=== PATIENT | female | born 1935 | race Caucasian/White ===

== ENCOUNTER → 2024-03-24 10:28 | Outpatient (REF) | payer OTHER, SELFPAY | LOC: HWRAD 10:28 | PROVIDERS: ATTENDING PHYSICIAN Family Medicine | DX: R63.4 Abnormal weight loss (principal); R19.7 Diarrhea, unspecified | CPT/HCPCS: 71250; 74176 ==

== ENCOUNTER 2024-12-13 14:31 | Emergency (ER) | payer OTHER, SELFPAY ==
[2024-12-13 14:37] VITALS: BP 175/65
[2024-12-13 15:22] LABS: Hematocrit 42.1 % (37.0-47.0); Hemoglobin 13.8 g/dL (12.0-16.0); Mean Corp Hgb Conc. 32.8 g/dL (33.0-37.0); Mean Corpuscular Volume 98.6 fL (81.0-99.0); Nucleated Red Blood Cells % 0 %; Platelet Count 225 10^3/uL (130-400); Red Cell Dist. Width 14.6 % (11.5-14.5)
[2024-12-13 15:23] LABS: Urine Character Slightly Cloudy (Clear)
[2024-12-13 15:44] LABS: ALT (SGPT) 24 U/L (0-35); AST (SGOT) 33 U/L (14-36); Albumin 4.6 g/dl (3.5-5.0); Alkaline Phosphatase 74 U/L (38-126); Blood Urea Nitrogen 26 mg/dl (7-17); Calcium 9.8 mg/dl (8.4-10.2); Carbon Dioxide 31 mmol/L (22-30); Chloride 103 mmol/L (98-107); Glucose 102 mg/dl (70-99); Potassium 3.7 mmol/L (3.5-5.1); Sodium 141 mmol/L (135-145); Total Protein 7.5 g/dl (6.3-8.2); Urine Red Blood Cell None Seen /HPF (0-2); Urine Squamous Cell 0 /LPF (Few); Urine White Cell None Seen /HPF (0-5); eGFR > 60.00
[2024-12-13 17:14] VITALS: BP 142/82
--- NOTE | 2024-12-13 17:43 | ED.GENMED ---
History of Present Illness
General
Chief Complaint: Fall
Source: patient
Exam Limitations: none
Time Seen by Provider: 12/13/24 17:31
Nursing documentation reviewed up to this point in time: agreed with
History of Present Illness
History of Present Illness:
89-year-old female presents to the ER for evaluation of fall. Patient states around 1 PM she was standing in her kitchen and woke up on the ground. She is not sure why she fell. She does recall having lunch prior to event. She did She did not
have any chest pain or dizziness prior to the fall. When she woke up on the floor she was not sure how she got there. She called her daughter after she crawled to the phone. She does live at [facility] and staff assisted patient. She has no
complaints at this time. She denies any headache or neck pain denies any chest pain shortness of breath now or prior to symptoms. Her only past medical history is hypertension.
Past History
Past History
ED Past Medical History: HTN
ED Past Surgical History: None
Phy Exam
General Physical Exam
General Presentation: no apparent distress
General age: appears stated age
General Skin: warm and dry
General Habitus: elderly
General Mental: alert
General Hydration: dry mucous membranes
Cardiovascular Exam
Cardiovascular Exam: regular rate/rhythm, no murmur and normal peripheral pulses
Pulmonary Exam
Pulmonary Exam: lungs clear and no respiratory distress
Gastrointestinal Exam
Gastrointestinal Exam: non tender and soft
Neurological Exam
Neurological Exam: alert, oriented x3, no motor deficits and no sensory deficits
Musculoskeletal Exam
Musculoskeletal Exam: full ROM and other (No obvious head injury on exam)
Skin Exam
Skin Exam: normal color and warm/dry
Psychiatric Exam
Psychiatric Exam: normal mood/affect
Course
Orders/Labs/Results
Orders:
Orders
12/13/24 14:41
CT Cervical Spine W/o Iv Contr Urgent
Comment:
Reason For Exam: fall, unknown LOC or head injury
CT Head W/o Iv Contrast Urgent
Comment:
Reason For Exam: fall, unknown LOC or head injury
12/13/24 15:11
Alcohol Urgent
Complete Blood Count/With Diff Urgent
Comprehensive Metabolic Panel Urgent
Urinalysis Reflex To Culture Urgent
Date Specimen was Collected: 12/13/24
Time Specimen was Collected: 14:41
Urine Microscopic Reflex Cult Urgent
12/13/24 17:53
Electrocardiogram (*1) Stat
Reason for Study: Other
Other Reason for Exam: chest pain
EKG- Treatment ONCE
Abnormal Lab Results
12/13/24
15:11
MCH 32.3 H pg
(27.0-31.0)
MCHC 32.8 L g/dL
(33.0-37.0)
RDW 14.6 H %
(11.5-14.5)
Abs Immat Gran (auto) 0.1 H 10^3/uL
(0-0.05)
Absolute Lymphs (auto) 1.0 L 10^3/uL
(1.2-3.4)
Immature Gran % 0.8 H %
(0-0.5)
Lymphocytes % 15.6 L %
(20.5-51.1)
Monocytes % 9.4 H %
(1.7-9.3)
Carbon Dioxide 31 H mmol/L
(22-30)
BUN 26 H mg/dl
(7-17)
Glucose 102 H mg/dl
(70-99)
Urine Albumin (Reflex) 2+ A
(Neg - Trace)
12/13/24 15:11
12/13/24 15:11
Vital Signs
Initial and Last Documented VS:
Initial Vital Signs
Temp Pulse Resp BP Pulse Ox
97.8 F 73 16 175/65 99
12/13/24 14:37 12/13/24 14:37 12/13/24 14:37 12/13/24 14:37 12/13/24 14:37
Last Documented Vital Signs
Temp Pulse Resp BP Pulse Ox
97.8 F 71 18 142/82 95
12/13/24 14:37 12/13/24 17:30 12/13/24 17:30 12/13/24 17:14 12/13/24 17:43
MDM/Problems Addressed
Differential Diagnosis Includes:
Not limited to syncope dehydration fall head injury, arrhythmia
MDM/Problems Addressed:
Patient is an 81-year-old female who presents to the ER for evaluation. Patient reports she woke up on the floor of her kitchen. She does not recall what happened. She remembers standing in her kitchen and then woke up on the floor. She denies
any chest pain dizziness lightheadedness prior to the event. She crawled to the phone and called her daughter who called staff. Patient presents awake alert she has no complaints at this time she denies any headache chest pain shortness of breath.
She wants to go home. CAT scan and cervical spine CAT scan performed no obvious acute injury.
Patient is afebrile no recen illness. Her white count is normal hemoglobin is stable. Her BUN is elevated. She did not want an IV line however she was given fluids. Her urinalysis is negative. Patient does admit to drinking a glass of Alia
before lunch which is typical for her. Her alcohol level was 86. Her EKG shows a left bundle branch block. There is no prior comparison. It was recommended that she be admitted for observation however she adamantly refuses. Case reviewed ED
physician she is well-appearing here and would like to go home .
Discussed close outpatient follow-up with family doctor and cardiology.
strict return precautions given.
*Radiology
Radiology exam reviewed: radiology read reviewed
*Pulse Oximetry
SaO2: 95
Oxygen Mode of Delivery: Room air
Patient hypoxic: no
*EKG
Interpreted by ED Provider?: Yes
Interpretation: abnormal
Comparison EKG: no comparison EKG present
Heart Rate: 76
Rate: normal
Rhythm: sinus
QRS Pattern: left bundle branch block
*Critical Care Note
Total Time (30-74mins, 75-104mins- exclusive of procedures): Not Applicable
ED Attending Note
-
Portions of this chart may have been created with voice recognition software.� Occasional wrong word or��sound alike� substitutions may have occurred due to the inherent limitations of voice recognition software.
Discharge Plan
Departure
Patient Disposition: Home (Routine Discharge)
Date of Disposition: 12/13/24
Time of Disposition: 18:12
Patient with high blood pressure during this ER visit?: Yes
Covid-19: Not Applicable
Discharge Problem:
Fall, Acute dehydration, Syncope
Instructions: Syncope (fainting) (DC), Dehydration in adults - ED (DC), BLOOD PRESSURE
Referrals:
Mario Silvestre MD [Active, Cardiology]
Activity Restrictions/Additional Instructions:
As discussed it is likely you passed out. It was recommended to be admitted to the hospital for observation. You were found to be dehydrated here in the ER.
please increase your fluids. In addition you have a have a left bundle branch block on your EKG. Follow-up with cardiology for this. Call tomorrow to make an appointment as soon as possible. Return if any worsening of symptoms with any
dizziness lightness chest pain shortness of breath.
In addition please follow-up with family doctor for reevaluation
Interventions
Interventions:
*Risk Screen - Suicide Last Done: 12/13/24 14:37
*General Assessment Last Done: 12/13/24 14:37
Discharge Date and Time
Print Language: LITHUANIAN
[2024-12-13 18:00] VITALS: BP 144/66
== END 2024-12-13 18:11 | disposition home or self-care (01) ==
LOC: EMR 14:31
PROVIDERS: EMERGENCY PHYSICIAN Emergency Medicine
DX: E86.0 Dehydration (principal); R55 Syncope and collapse; I10 Essential (primary) hypertension; I44.7 Left bundle-branch block, unspecified; W19.XXXA Unspecified fall, initial encounter; Y92.030 Kitchen in apartment as the place of occurrence of the external cause
CPT/HCPCS: 99284; 70450; 72125; 80053; 81003; 81015; 82077; 85025; 93005